=== PATIENT | male | born 2000 | race Caucasian/White ===

== ENCOUNTER 2025-06-04 16:21 | Emergency (ER) | payer SELFPAY ==
[~2025-06-04] VITALS: Ht 170.2 cm; Wt 61.0 kg
[2025-06-04 16:24] VITALS: O2SAT 100
[2025-06-04] MEDS: KETOROLAC 30MG/ML VIAL IM ONE (18:44)
[2025-06-04] MEDS: DEXAMETHASONE 10 MG/ML VIAL IM ONE (18:45)
[2025-06-04] MEDS: PENICILLIN G BENZATHINE 1,200,000 UNITS/2ML SYR IM ONE (18:45)
[2025-06-04] MEDS ORDERED: AMOX-494 MT (19:13)
[2025-06-04] MEDS ORDERED: NAPR-681 PO (19:13)
[2025-06-04 19:47] VITALS: BP 117/63; PULSE 68; RESP 14; TEMP 36.7; O2SAT 98
== END 2025-06-04 19:48 | disposition home or self-care (01) ==
LOC: ER 16:21
DX: J03.90 Acute tonsillitis, unspecified (principal); Z79.52 Long term (current) use of systemic steroids
CPT/HCPCS: 87430; 87070; 96372; 99284; J1100; J1885; J0561; Z7610